=== PATIENT | female | born 1965 | race Caucasian/White ===

== ENCOUNTER 2021-07-05 18:45 | Emergency (ER) | payer BC, SELFPAY ==
--- NOTE | 2021-07-05 18:52 | XR_ITS ---
PROCEDURE INFORMATION: Exam: XR Right Shoulder Exam date and time: 07/05/2021 6:52 PM Age: 55 years old Clinical indication: Injury or trauma; Fall; Blunt trauma (contusions or hematomas); Shoulder; Right; Injury date: 07/05/2021; Additional info: Pain post fall unable to move arm TECHNIQUE: Imaging protocol: XR Right shoulder. Views: 2 or more views. COMPARISON: No relevant prior studies available. FINDINGS: Bones/joints: Displaced and mildly comminuted humeral neck fracture. Inferior subluxation of the humeral head suggests joint effusion. Soft tissues: Unremarkable. IMPRESSION: Displaced and mildly comminuted humeral neck fracture. Inferior subluxation of the humeral head suggests joint effusion.
--- NOTE | 2021-07-05 18:52 | XR_ITS ---
PROCEDURE INFORMATION: Exam: XR Right Humerus Exam date and time: 07/05/2021 6:52 PM Age: 55 years old Clinical indication: Injury or trauma; Fall; Blunt trauma (contusions or hematomas); Arm, upper; Right; Injury date: 07/05/2021; Additional info: Pain post fall TECHNIQUE: Imaging protocol: XR Right humerus. Views: 2 or more views. COMPARISON: CR XR SHOULDER RT MIN 2V 07/05/2021 6:52 PM FINDINGS: Bones/joints: Displaced and mildly comminuted humeral neck fracture. Inferior subluxation of the humeral head suggests joint effusion. Soft tissues: Unremarkable. IMPRESSION: Displaced and mildly comminuted humeral neck fracture. Inferior subluxation of the humeral head suggests joint effusion.
[2021-07-05 19:22] VITALS: BP 158/92; PULSE 105; RESP 22; TEMP 36.9; O2SAT 98; BMI 34.0
--- NOTE | 2021-07-05 19:29 | XR_ITS ---
PROCEDURE INFORMATION: Exam: XR Pelvis Exam date and time: 07/05/2021 7:29 PM Age: 55 years old Clinical indication: Injury or trauma; Fall; Blunt trauma (contusions or hematomas); Bilateral; Hip TECHNIQUE: Imaging protocol: XR pelvis. Views: 1 or 2 view. COMPARISON: No relevant prior studies available. FINDINGS: Bones/joints: No acute fracture or dislocation. Soft tissues: Unremarkable. IMPRESSION: No acute fracture or dislocation.
--- NOTE | 2021-07-05 19:29 | XR_ITS ---
PROCEDURE INFORMATION: Exam: XR Chest Exam date and time: 07/05/2021 7:29 PM Age: 55 years old Clinical indication: Injury or trauma; Fall; Blunt trauma (contusions or hematomas) TECHNIQUE: Imaging protocol: XR of the chest. Views: 4 or more views. COMPARISON: CR XR HUMERUS RT 07/05/2021 6:57 PM FINDINGS: Lungs: Right hemidiaphragm elevation with right lower lung atelectasis. Pleural spaces: Unremarkable. No pleural effusion. No pneumothorax. Heart/Mediastinum: Cardiomegaly. Bones/joints: Unremarkable. IMPRESSION: No acute intrathoracic organ injury.
[2021-07-05 20:00] VITALS: BP 152/92; PULSE 104; O2SAT 96
--- NOTE | 2021-07-05 20:05 | CT_ITS ---
PROCEDURE INFORMATION: Exam: CT Right Upper Extremity Without Contrast, Upper Arm Exam date and time: 07/05/2021 8:05 PM Age: 55 years old Clinical indication: Injury or trauma; Other: Barn wall fell onto shoulder; Blunt trauma (contusions or hematomas); Arm, upper; Right; Injury date: 07/05/2021; Additional info: Trauma, fracture RT shoulder TECHNIQUE: Imaging protocol: CT of the Right upper extremity without contrast was performed. Exam focused on the upper arm. 3D rendering (Not supervised by radiologist): MIP and/or 3D reconstructed images were created by the technologist. Radiation optimization: All CT scans at this facility use at least one of these dose optimization techniques: automated exposure control; mA and/or kV adjustment per patient size (includes targeted exams where dose is matched to clinical indication); or iterative reconstruction. COMPARISON: CR XR HUMERUS RT 07/05/2021 6:57 PM FINDINGS: Bones/joints: Moderately comminuted humeral neck fracture with involvement of the greater tuberosity. There is likely intra-articular component as well. The humeral diaphysis is mildly superiorly and anteriorly displaced. Moderate lipohemarthrosis. Soft tissues: Hematoma around the fracture. IMPRESSION: Moderately comminuted humeral neck fracture with involvement of the greater tuberosity. There is likely intra-articular component as well. The humeral diaphysis is mildly superiorly and anteriorly displaced.
--- NOTE | 2021-07-05 20:18 | PC.NURSE ---
Pt gone to rad for CT
--- NOTE | 2021-07-05 20:26 | HMH.EDGENADL ---
ED Disposition Clinical Impression: Fracture of surgical neck of right humerus Qualifiers: Encounter type: initial encounter Fracture type: closed Fracture morphology: 3-part Qualified Code(s): S42.231A - 3-part fracture of surgical neck of right humerus, initial encounter for closed fracture Disposition: Home, Self-Care Condition on Discharge: Fair Instructions: DI for Shoulder Fracture Additional Instructions: You have been evaluated for right shoulder injury, diagnosed with a closed, displaced proximal humerus fracture. Please keep sling and swath in place. Take Tylenol and Motrin for pain. Turton for extreme pain. Zofran for nausea. Follow-up with orthopedics at [facility], Dr. Adams early this week. You may also follow-up with Dr. Scales at [facility] if you choose. Return to the emergency department for any new or worsening pain, numbness, weakness, tingling, other concerns. Prescriptions: Hydrocod/Acet 5/325 mg [[place] 5/325mg tablet] 1 tab PO Q6HP PRN #12 tab PRN Reason: Severe Pain Transmission Status: Sent to [facility] #[id number] ondansetron HCL [Ondansetron 4mg tab*] 4 mg PO Q6HP PRN #12 tab PRN Reason: Nausea Transmission Status: Pending to [facility] #[id number] Referrals: Sera Landon [Primary Care Provider] - Time of Disposition: 21:15 - Critical Care Critical Care Time: No Attestation: On 07/05/21, the high probability of a clinically significant, sudden or life threatening deterioration of the following system(s) required my full and direct attention, intervention and personal management. The time I documented below is in addition to time spent performing reported procedures but includes the following listed in this critical care notation. Medical Decision Making - Medical Records Medical records reviewed: Yes: I reviewed the patient's medical records. - Cresecncio Inquiry Pt receiving controlled substance: No Vital Signs: 07/05/21 19:22 Temperature 98.4 F Temperature Source Oral Pulse Rate [Right Radial] 105 H Respiratory Rate 22 Blood Pressure [Left Arm] 158/92 H Blood Pressure Mean [Left Arm] 114 Blood Pressure Source [Left Arm] Automatic Cuff Blood Pressure Position [Left Arm] Supine 02 Sat by Pulse Oximetry 98 Oxygen Delivery Method Room Air Orders (Tests/Meds): ED MEDICATIONS Discontinued Medications Generic Name Dose Route Start Last Admin Trade Name Yariel PRN Reason Stop Dose Admin Morphine Sulfate 4 mg 07/05/21 19:31 07/05/21 19:32 Morphine 4mg/Ml Syringe IV 07/05/21 19:32 4 mg ONCE ONE Administration Morphine Sulfate 4 mg 07/05/21 20:04 07/05/21 20:12 Morphine 4mg/Ml Syringe IV 07/05/21 20:05 4 mg ONCE ONE Administration Ondansetron HCl 4 mg 07/05/21 19:31 07/05/21 19:32 Ondansetron 4mg/2ml Vial IV 07/05/21 19:32 4 mg ONCE ONE Administration Medical Decision Narrative: In summary this is a 55-year-old [id number] female presenting to the emergency department with traumatic right shoulder injury. Clinically stable on arrival. Tachycardic. Other vital signs within normal limits. Concern for clavicle fracture, humerus fracture, dislocation. Will obtain x-rays of the right humerus, shoulder, chest. Patient given 4 mg IV morphine and 4 mg IV Zofran. X-rays were limited, given patient's decreased range of motion. Will obtain CT scan. Imaging is concerning for a humerus fracture at the surgical neck. Patient neurovascularly intact. CT scan shows comminuted humeral neck fracture with involvement of the greater tuberosity. Distal humerus mildly superior and anteriorly displaced. Do not have an orthopedist insurance application investigator tonight. Case discussed with [facility], Dr. Adams. He recommended sling and swath. Patient can follow-up with their group within 1 week. Patient may also follow-up with Dr. Scales if she chooses. On reassessment, pain much improved. Patient given prescriptions for Turton and Zofran.
[2021-07-05 20:30] VITALS: BP 150/80; PULSE 93; RESP 18; O2SAT 100
--- NOTE | 2021-07-05 20:41 | PC.NURSE ---
pt back in room from rad
[2021-07-05 21:00] VITALS: BP 161/90; PULSE 89; O2SAT 93
--- NOTE | 2021-07-05 21:08 | PC.NURSE ---
[id number]- [facility] paged for ortho consult [id number]- called back and is speaking with MD Pretty at this time
[2021-07-05 22:06] VITALS: BP 162/95; PULSE 93; RESP 18; TEMP 36.9; O2SAT 97
== END 2021-07-05 21:30 | disposition home or self-care (01) ==
LOC: UTC 18:52 → ER 19:14
PROVIDERS: Emergency Provider Emergency Medicine; PCP Family Medicine
DX: S42.231A 3-part fracture of surgical neck of right humerus, initial encounter for closed fracture (principal); W20.8XXA Other cause of strike by thrown, projected or falling object, initial encounter
CPT/HCPCS: 71045; 72170; 73030; 73060; 73200; 96374; 96375; 96376; 99282; J2405

== ENCOUNTER 2021-10-27 11:49 | Inpatient (IN) | payer BC, SELFPAY ==
[2021-10-27 11:50] VITALS: BP 138/77; PULSE 84; RESP 18; TEMP 37.2; O2SAT 86; BMI 34.5
--- NOTE | 2021-10-27 12:01 | ECG_ITS ---
APPROVED REPORT Exam: Resting ECG HR:67 bpm ECG Measurements Heart Rate 67 AXES AZ 126 P -21 QRSd 95 QRS 3 QT 385 T 5 QTc 401 Conclusion SINUS RHYTHM MODERATE VOLTAGE CRITERIA FOR LVH, CONSIDER NORMAL VARIANT [MEETS CRITERIA IN ONE OF: R(aVL), S(V1), R(V5), R(V5/V6)+S(V1)] BORDERLINE ECG UNCONFIRMED REPORT Electronically signed by : David Rm MD 10/27/2021 17:26:17
--- NOTE | 2021-10-27 12:04 | XR_ITS ---
FINAL REPORT CLINICAL HISTORY: cough, covid+ 12 DAYS AGO, soa COMPARISON: July 05, 2021 FINDINGS: The heart size is normal. The mediastinum is normal. There are new bilateral pulmonary opacities consistent with bilateral pneumonia. There are no pleural effusions. There is no pneumothorax. There is a chronic fracture of the right proximal humerus. IMPRESSION: Bilateral pneumonia. Reviewed, Interpreted and Dictated by Nemesio Sánchez III, MD Transcribed by Iván Johnson Authenticated by Nemesio Sánchez III, MD on 10/27/2021 01:08:59 PM [facility]
--- NOTE | 2021-10-27 12:11 | HMH.EDGENADL ---
ED Disposition Clinical Impression: COVID-19, Hypoxemia CAP (community acquired pneumonia) Qualifiers: Laterality: unspecified laterality Qualified Code(s): J18.9 - Pneumonia, unspecified organism Disposition: Admitted as Observation Condition on Discharge: Good Referrals: Sera Landon [Primary Care Provider] - - Critical Care Critical Care Time: No Attestation: On 10/27/21, the high probability of a clinically significant, sudden or life threatening deterioration of the following system(s) required my full and direct attention, intervention and personal management. The time I documented below is in addition to time spent performing reported procedures but includes the following listed in this critical care notation. Medical Decision Making - Medical Records Medical records reviewed: Yes: I reviewed the patient's medical records. - Crescencio Inquiry Pt receiving controlled substance: No Vital Signs: 10/27/21 11:50 10/27/21 13:19 Temperature 99 F Temperature Source Oral Pulse Rate [Right Radial] 84 Respiratory Rate 18 Blood Pressure 128/82 Blood Pressure [Right Arm] 138/77 Blood Pressure Mean [Right Arm] 97 Blood Pressure Source [Right Arm] Automatic Cuff Blood Pressure Position [Right Arm] Sitting 02 Sat by Pulse Oximetry 86 L 95 Oxygen Delivery Method Room Air Nasal Cannula Oxygen Flow Rate (LPM) 2 - Lab Data Lab Results 10/27/21 13:20: WBC 10.9 H, RBC 4.52, Hgb 13.0, Hct 39.6, MCV 87.6, MCH 28.6, MCHC 32.7, RDW 13.8, Plt Count 718 H, MPV 7.1 L, Neut % (Auto) 89.8 H, Lymph % (Auto) 5.1 L, [place] % (Auto) 3.5, Eos % (Auto) 0.4, Baso % (Auto) 1.1, Neut # (Auto) 9.8 H, Lymph # (Auto) 0.6 L, [place] # (Auto) 0.4, Eos # (Auto) 0.1, Baso # (Auto) 0.1 10/27/21 13:20: Sodium 134 L, Potassium 3.3 L, Chloride 94 L, Carbon Dioxide 35 H, Anion Gap 8.3, BUN 11, Creatinine 0.50 L, Estimated Creat Clear 170, Estimated GFR 128, Est GFR ( Amer) 154, Glucose 122 H, Calcium 8.6, Total Bilirubin 0.6, AST 36, ALT 18, Alkaline Phosphatase 87, Total Protein 6.9, Albumin 3.6, Globulin 3.3 H, Albumin/Globulin Ratio 1.1 Result diagrams: 10/27/21 13:20 10/27/21 13:20 Orders (Tests/Meds): ED MEDICATIONS Generic Name Dose Route Start Last Admin Trade Name Freq PRN Reason Stop Dose Admin Ceftriaxone Sodium 1 gm/ 50 mls @ 100 mls/hr 10/27/21 14:58 Sodium Chloride IV 10/27/21 15:27 Q24H ONE Discontinued Medications Generic Name Dose Route Start Last Admin Trade Name Freq PRN Reason Stop Dose Admin Dexamethasone Sodium Phosphate 8 mg 10/27/21 14:08 Dexamethasone 4mg/Ml 1ml Vial IV 10/27/21 14:09 ONCE ONE Azithromycin 500 mg/ Sodium 250 mls @ 250 mls/hr 10/27/21 14:09 Chloride IV 10/27/21 14:10 ONCE ONE Ceftriaxone Sodium 1 gm/ 50 mls @ 100 mls/hr 10/27/21 14:09 Sodium Chloride IV 10/27/21 14:38 ONCE ONE Potassium Chloride 40 meq 10/27/21 13:53 Potassium Chloride 20meq Tab PO 10/27/21 13:54 ONCE ONE ORDERS Category Date Time Status Complete Blood Count Auto Diff Stat Lab 10/27/21 13:20 Results Blood Culture Stat Micro 10/27/21 14:50 Received Medical Decision Narrative: ekg by me nsr, lvh, no st elev reeval, hypoxia ra, 2lnc 92% comfortable General Adult HPI - General Chief complaint: Shortness of Breath/Dyspnea Stated complaint: covid postive, soa Time Seen by Provider: 10/27/21 12:11 Mode of Arrival: Wheelchair Limitations: No Limitations Description of Symptoms (Recalled from ER Triage Doc. by RN): Pt states that she tested positive for COVID on 10/15. C/O worsening SOA today - History of Present Illness HPI narrative: recent covid pos, today with soa and cough denies cp Radiation: non-radiation Severity: moderate Quality: constant Consistency: intermittent Relieving factors: none Exacerbating factors: none Associated symptoms: denies other symptoms - Related Data Home Medications Medication Instr
[2021-10-27 13:19] VITALS: BP 128/82; O2SAT 95
[2021-10-27 13:29] LABS: Basophils # 0.1 K/mm3 (0-0.2); Basophils % 1.1 % (0.1-2.0); Eosinophils # 0.1 K/mm3 (0.0-0.4); Eosinophils % 0.4 % (0.1-12.0); Hematocrit 39.6 % (37.0-47.0); Lymphocytes # 0.6 K/mm3 (0.7-4.5); Lymphocytes % 5.1 % (10-50); Mean Corpuscular HGB Conc 32.7 g/dL (31.8-35.4); Mean Corpuscular Hemoglobin 28.6 pg (27.0-31.2); Mean Corpuscular Volume 87.6 fl (81-99); Mean Platelet Volume 7.1 fl (7.4-10.4); Monocytes # 0.4 K/mm3 (0.1-1.0); Monocytes % 3.5 % (1.7-9.3); Neutrophils # 9.8 K/mm3 (1.8-7.8); Neutrophils % 89.8 % (37.0-80.0); Platelet Count 718 K/mm3 (142-424); Red Blood Count 4.52 M/mm3 (4.20-5.40); Red Cell Distribution Width 13.8 % (11.5-17.5); White Blood Count 10.9 K/mm3 (4.8-10.8)
[2021-10-27 13:41] LABS: Alanine Aminotransferase 18 U/L (12-78); Albumin Level 3.6 g/dl (3.5-5.0); Albumin/Globulin Ratio 1.1 (1.1-1.8); Alkaline Phosphatase 87 U/L (38-126); Anion Gap 8.3 mEq/L (5-15); Aspartate Amino Transferase 36 U/L (14-36); Bilirubin,Total 0.6 mg/dl (0.2-1.3); Blood Urea Nitrogen 11 mg/dl (7-17); Calcium 8.6 mg/dl (8.4-10.2); Carbon Dioxide 35 mmol/L (22.0-30.0); Chloride 94 mmol/L (98-107); Creatinine Clearance Estimated 170 mL/min (50-200); Estimated Glomerular Filt Rate 128 ml/min (>60); GFR (African American) 154 ML/MIN (>60); Globulin 3.3 g/dL (1.3-3.2); Glucose 122 mg/dl (74-100); Potassium 3.3 mmoL/L (3.5-5.1); Sodium 134 mmol/L (136-145); Total Protein,Serum 6.9 g/dl (6.3-8.2)
--- NOTE | 2021-10-27 13:58 | PC.NURSE ---
Family given an update
[2021-10-27 14:00] LABS: MANUAL DIFFERENTIAL MANUAL DIFFERENTIAL (MANUAL DIFF)
--- NOTE | 2021-10-27 14:36 | PC.NURSE ---
Unsuccessful blood draw x 1 on patient. Lab notified
[2021-10-27 16:22] LABS: Eosinophils % 1 % (0-3); Lymphocytes % 9 % (10-50); Monocytes % 5 % (2-9); Neutrophils % 85 % (42-76); Platelet Estimate Marked Increase; RBC Morphology Normal; Total Cells Counted 100
[2021-10-27 17:03] LABS: Influenza A, PCR Not Detected (NotDetected); Influenza B, PCR Not Detected (NotDetected)
[2021-10-27 17:30] LABS: Coronavirus 19, PCR Detected (NotDetected)
--- NOTE | 2021-10-27 17:53 | PC.NURSE ---
called report to mickey cardenas
[2021-10-27 18:00] VITALS: BP 104/65; PULSE 67; RESP 18; TEMP 36.8; O2SAT 90
[2021-10-27 18:54] VITALS: BP 131/79; PULSE 88; RESP 18; TEMP 36.9; O2SAT 97
--- NOTE | 2021-10-27 19:07 | CT_ITS ---
PROCEDURE INFORMATION: Exam: CTA Chest With Contrast Exam date and time: 10/27/2021 7:07 PM Age: 56 years old Clinical indication: Shortness of breath; Additional info: Hypoxia, covid TECHNIQUE: Imaging protocol: Computed tomographic angiography of the chest with contrast. 3D rendering (Not supervised by radiologist): MIP and/or 3D reconstructed images were created by the technologist. Radiation optimization: All CT scans at this facility use at least one of these dose optimization techniques: automated exposure control; mA and/or kV adjustment per patient size (includes targeted exams where dose is matched to clinical indication); or iterative reconstruction. Contrast material: ISOVUE 370; Contrast volume: 70 ml; Contrast route: INTRAVENOUS (IV); COMPARISON: CR XR CHEST PORTABLE 10/27/2021 12:32 PM FINDINGS: Pulmonary arteries: Normal. No pulmonary emboli. Aorta: No aortic aneurysm. No aortic dissection. Lungs: Multifocal bilateral ground-glass pulmonary opacities. No lobar consolidation. Pleural spaces: No pneumothorax. No pleural effusion. Heart: No cardiomegaly. No pericardial effusion. Lymph nodes: No enlarged lymph nodes. Bones/joints: No acute fracture. Soft tissues: No significant swelling. IMPRESSION: Multifocal bilateral ground-glass pulmonary opacities which are nonspecific but potentially infectious or inflammatory and would be compatible with the provided history of covid. Follow-up to radiographic clearance is recommended.
[2021-10-27 20:00] VITALS: BP 122/74; PULSE 70; RESP 20; TEMP 36.7; O2SAT 92
[2021-10-27 23:55] VITALS: O2SAT 93
[2021-10-28] VITALS (10 sets, daily range): BP systolic 118–152; BP diastolic 49–81; PULSE 67–95; RESP 17–22; TEMP 36.3–37.1; O2SAT 88–95; BMI 31.2
--- NOTE | 2021-10-28 05:49 | PC.NURSE ---
Patient has required an increase in oxygen throughout the night. Patient is now on 3LNC. Patient does have a CPAP at home and can have someone bring it to the hospital
--- NOTE | 2021-10-28 07:20 | SW/DCPLANNER ---
PATIENT ADMITTED TO [facility] ON 10/27 WITH A DIAGNOSIS OF COVID PNEUMONIA.. PATIENT IS AN EMPLOYEE AT THE [employer] IN [place] AND RESIDES IN [place].. CM WILL FOLLOW PATIENT THROUGH HER STAY WHICH SHOULD BE SHORT AND ANY NEEDS SHE NEEDS WILL BE SET UP AT TIME OF DISPOSITION...
--- NOTE | 2021-10-28 07:26 | HMH.HP ---
*Admission Date: 10/27/21 *Chief complaint: Shortness of breath *History of present illness: 56-year-old female presented to the emergency department yesterday with increasing shortness of breath believed to be related to COVID-19 infection. Patient had tested positive for COVID-19 on October 15. Patient completed a 10-day quarantine. Initial symptoms were primarily headache and nasal congestion with fevers as high as 102.7. On Wednesday the 26 patient noticed increasing shortness of breath and loss of energy. This progressed to the point where she presented to the emergency department on the day of admission. Patient was hypoxic on presentation and her prior hypoxia was easily corrected with application of nasal cannula. Further work-up confirmed the presence of infiltrates. Patient was admitted for acute respiratory failure from pneumonia related to COVID-19 infection. She has been started on Remdesivir and dexamethasone as well as Rocephin and azithromycin. Patient has no personal history of lung disease. She is a non-smoker. Patient has had an increase in oxygen requirement overnight. Initially she was admitted on 2 L via nasal cannula and currently she is up to 5 L/min. CT scan performed on admission ruled out pulmonary emboli [facility] History I have reviewed the patient's past medical history: Yes Medical History: Reports:: Hyperlipidemia, Hypertension, Palpitations Denies:: Cancer, Diabetes Mellitus Type 1, Diabetes Mellitus Type 2, MRSA *Have you ever received a pneumonia vaccine?: No *Have you received a flu vaccine this season?: No Other Medical History: Reports: Arthritis Other Surgeries: Yes: Colonoscopy, EGD, Hysterectomy-Partial Amputation: No Fractures: No - *Social History Last grade of school completed: Advanced degree Smoking Status: Never smoker Alcohol Intake: never *Occupational Status:: employed Housing: house Household Members: spouse *Travel in the last 8 weeks: None Family Hx:: Mental illness Review of Systems - Review of Systems Review of systems:: pertinent systems reviewed and negative unless documented below Meds Home Medications Medication Instructions Recorded Confirmed Type Cetirizine HCl 10 mg PO DAILY 07/05/21 07/05/21 History EPINEPHrine [Epipen 2-Yoel] 0.3 mg IM NEEDED PRN 07/05/21 07/05/21 History Ezetimibe [Zetia] 10 mg PO DAILY 07/05/21 07/05/21 History Fluticasone Propionate 1 spray IN DAILY 07/05/21 07/05/21 History Hydrocod/Acet 5/325 mg [[place] 1 tab PO Q6HP PRN #12 tab 07/05/21 Rx 5/325mg tablet] Losartan Potassium [Cozaar 50mg 50 mg PO NEEDED PRN 07/05/21 07/05/21 History Tablets] Omeprazole [Omeprazole 20mg 20 mg PO DAILY 07/05/21 07/05/21 History Capsule] hydroCHLOROthiazide 12.5 mg PO NEEDED PRN 07/05/21 07/05/21 History [Hydrochlorothiazide 12.5mg Tab] ondansetron HCL [Ondansetron 4mg 4 mg PO Q6HP PRN #12 tab 07/05/21 Rx tab*] Allergies Allergy/AdvReac Type Severity Reaction Status Date / Time calcium carbonate [From Tums] Allergy Verified 07/05/21 19:00 Estrogens Allergy Verified 07/05/21 19:00 Penicillins Allergy Verified 07/05/21 19:00 Exam Vital signs and Labs for Last 24 Hours: Temp Pulse Resp BP Pulse Ox 97.7 F 68 17 151/81 H 94 L 10/28/21 04:00 10/28/21 04:00 10/28/21 04:00 10/28/21 04:00 10/28/21 04:00 Laboratory Results - last 24 hr 10/27/21 13:20: WBC 10.9 H, RBC 4.52, Hgb 13.0, Hct 39.6, MCV 87.6, MCH 28.6, MCHC 32.7, RDW 13.8, Plt Count 718 H, MPV 7.1 L, Neut % (Auto) 89.8 H, Lymph % (Auto) 5.1 L, [place] % (Auto) 3.5, Eos % (Auto) 0.4, Baso % (Auto) 1.1, Neut # (Auto) 9.8 H, Lymph # (Auto) 0.6 L, [place] # (Auto) 0.4, Eos # (Auto) 0.1, Baso # (Auto) 0.1, Total Counted 100, Neutrophils % (Manual) 85 H, Lymphocytes % (Manual) 9 L, Monocytes % (Manual) 5, Eosinophils % (Manual) 1, Platelet Estimate Marked increase, RBC Morphology Normal 10/27/21 13:20: Sodium 134 L, Potassium 3.3 L, Chl
--- NOTE | 2021-10-28 07:41 | HMH.PHAVTE ---
[facility] Pharmacy VTE Monitoring - Patient Demographics Admission date: 10/27/21 Report Date: 10/28/21 Time: 07:41 Allergies/Adverse Reactions: Patient Allergies calcium carbonate [From Tums] Allergy (Verified 07/05/21 19:00) Estrogens Allergy (Verified 07/05/21 19:00) Penicillins Allergy (Verified 07/05/21 19:00) Height: 1.57 m Weight: 77.111 kg Patient Problems: Current Active Problems CAP (community acquired pneumonia) (Acute) COVID-19 (Acute) Hypoxemia (Acute) Acute respiratory failure with hypoxia (Acute) Viral pneumonia (Acute) Essential hypertension (Acute) Obesity (BMI 30.0-34.9) (Acute) - VTE Risk Labs: VTE Related Lab Results Hgb 13.0 g/dL (12.2-16.2) 10/27/21 13:20 Hct 39.6 % (37.0-47.0) 10/27/21 13:20 Plt Count 718 K/mm3 (142-424) H 10/27/21 13:20 BUN 11 mg/dl (7-17) 10/27/21 13:20 Creatinine 0.50 mg/dl (0.52-1.04) L 10/27/21 13:20 Estimated Creat Clear 170 mL/min (50-200) 10/27/21 13:20 Was VTE Risk Assessment Performed: Yes VTE Score: 3 VTE Risk Level: Low Risk - Prophylaxis VTE Prophylaxis Ordered?: Yes Types of VTE Prophylaxis: TEDS Knee High, Pharmacological Location of Applied Device: Bilateral Lower Extremeties Pharmacologic Type: Enoxaparin
[2021-10-28 07:55] LABS: Chloride 100 mmol/L (98-107); Sodium 138 mmol/L (136-145)
[2021-10-28 07:56] LABS: Potassium 3.6 mmoL/L (3.5-5.1)
[2021-10-28 07:57] LABS: Basophils % 0.4 % (0.1-2.0); Eosinophils % 0.2 % (0.1-12.0); Hematocrit 41.1 % (37.0-47.0); Hemoglobin 13.1 g/dL (12.2-16.2); Lymphocytes # 0.7 K/mm3 (0.7-4.5); Lymphocytes % 9.9 % (10-50); Mean Corpuscular HGB Conc 31.9 g/dL (31.8-35.4); Mean Corpuscular Hemoglobin 28.3 pg (27.0-31.2); Mean Corpuscular Volume 88.6 fl (81-99); Mean Platelet Volume 8.1 fl (7.4-10.4); Monocytes # 0.4 K/mm3 (0.1-1.0); Monocytes % 5.6 % (1.7-9.3); Neutrophils # 5.7 K/mm3 (1.8-7.8); Platelet Count 815 K/mm3 (142-424); Red Blood Count 4.64 M/mm3 (4.20-5.40); Red Cell Distribution Width 13.9 % (11.5-17.5); White Blood Count 6.8 K/mm3 (4.8-10.8)
[2021-10-28 07:58] LABS: Alanine Aminotransferase 19 U/L (12-78); Albumin Level 3.6 g/dl (3.5-5.0); Alkaline Phosphatase 82 U/L (38-126); Anion Gap 11.6 mEq/L (5-15); Aspartate Amino Transferase 35 U/L (14-36); Bilirubin,Total 0.5 mg/dl (0.2-1.3); Blood Urea Nitrogen 14 mg/dl (7-17); Carbon Dioxide 30 mmol/L (22.0-30.0); Creatinine Clearance Estimated 191 mL/min (50-200); Estimated Glomerular Filt Rate 165 ml/min (>60); GFR (African American) 200 ML/MIN (>60); Globulin 3.5 g/dL (1.3-3.2); Total Protein,Serum 7.1 g/dl (6.3-8.2)
[2021-10-28 07:59] LABS: Calcium 8.9 mg/dl (8.4-10.2); Glucose 125 mg/dl (74-100)
[2021-10-28 08:04] LABS: C-Reactive Protein 73.7 mg/L (0-4)
--- NOTE | 2021-10-28 09:40 | PC.NURSE ---
RESPIRATORY CARE NOTE:PT COULD NOT PRODUCE SPUTUM SAMPLE AT THIS TIME. INDUCED WITH HYPERTONIC SALINE AND LEFT CUP AT BEDSIDE. INSTRUCTED PT TO CONTINUE TO TRY TO GET SAMPLE IF POSSIBLE.
--- NOTE | 2021-10-28 10:38 | HMH.PHAINT ---
MEDICATION RECONCILIATION COMPLETED ON PATIENT USING EXTERNAL FILL HISTORY FROM PHARMACY. -PERLA VALENCIA, MCKAYD
[2021-10-29] VITALS (10 sets, daily range): BP systolic 106–138; BP diastolic 65–75; PULSE 57–86; RESP 16–22; TEMP 36.8–37.1; O2SAT 88–97; BMI 31.2
[2021-10-29 06:45] LABS: Chloride 97 mmol/L (98-107); Potassium 3.4 mmoL/L (3.5-5.1); Sodium 134 mmol/L (136-145)
[2021-10-29 06:48] LABS: Alanine Aminotransferase 22 U/L (12-78); Albumin Level 3.4 g/dl (3.5-5.0); Albumin/Globulin Ratio 1.1 (1.1-1.8); Alkaline Phosphatase 68 U/L (38-126); Anion Gap 9.4 mEq/L (5-15); Aspartate Amino Transferase 38 U/L (14-36); Bilirubin,Total 0.6 mg/dl (0.2-1.3); Blood Urea Nitrogen 14 mg/dl (7-17); Carbon Dioxide 31 mmol/L (22.0-30.0); Creatinine Clearance Estimated 153 mL/min (50-200); Estimated Glomerular Filt Rate 128 ml/min (>60); GFR (African American) 154 ML/MIN (>60); Globulin 3.2 g/dL (1.3-3.2); Total Protein,Serum 6.6 g/dl (6.3-8.2)
[2021-10-29 06:49] LABS: Calcium 8.3 mg/dl (8.4-10.2); Glucose 103 mg/dl (74-100)
[2021-10-29 07:01] LABS: Basophils # 0.1 K/mm3 (0-0.2); Basophils % 0.7 % (0.1-2.0); Eosinophils % 0.2 % (0.1-12.0); Hematocrit 39.1 % (37.0-47.0); Hemoglobin 12.3 g/dL (12.2-16.2); Lymphocytes # 1.3 K/mm3 (0.7-4.5); Lymphocytes % 15.1 % (10-50); Mean Corpuscular HGB Conc 31.5 g/dL (31.8-35.4); Mean Corpuscular Hemoglobin 28.5 pg (27.0-31.2); Mean Corpuscular Volume 90.5 fl (81-99); Mean Platelet Volume 7.8 fl (7.4-10.4); Monocytes # 0.5 K/mm3 (0.1-1.0); Monocytes % 5.1 % (1.7-9.3); Neutrophils % 79.1 % (37.0-80.0); Platelet Count 875 K/mm3 (142-424); Red Blood Count 4.32 M/mm3 (4.20-5.40); Red Cell Distribution Width 14.1 % (11.5-17.5); White Blood Count 8.9 K/mm3 (4.8-10.8)
--- NOTE | 2021-10-29 07:48 | HMH.ACPN2 ---
Internal Medicine - PN: Subj *Date: 10/29/21 *Time: 07:48 Interval history: No acute events. Patient has noted dyspnea only with ambulation and exertion. O2 sats have remained 88 to 92% on 4 to 5 L/min via nasal cannula Exam Vital signs and Labs for Last 24 Hours: Temp Pulse Resp BP Pulse Ox 98.8 F 83 18 112/65 94 L 10/29/21 07:26 10/29/21 07:26 10/29/21 07:26 10/29/21 07:26 10/29/21 07:26 Laboratory Results - last 24 hr 10/28/21 07:15: WBC 6.8 D, RBC 4.64, Hgb 13.1, Hct 41.1, MCV 88.6, MCH 28.3, MCHC 31.9, RDW 13.9, Plt Count 815 H, MPV 8.1, Neut % (Auto) 84.0 H, Lymph % (Auto) 9.9 L, [place] % (Auto) 5.6, Eos % (Auto) 0.2, Baso % (Auto) 0.4, Neut # (Auto) 5.7, Lymph # (Auto) 0.7, [place] # (Auto) 0.4, Eos # (Auto) 0.0, Baso # (Auto) 0.0 10/28/21 07:15: Sodium 138, Potassium 3.6, Chloride 100, Carbon Dioxide 30, Anion Gap 11.6, BUN 14 D, Creatinine 0.40 L, Estimated Creat Clear 191, Estimated GFR 165, Est GFR ( Amer) 200 D, Glucose 125 H, Calcium 8.9, Total Bilirubin 0.5, AST 35, ALT 19, Alkaline Phosphatase 82, C-Reactive Protein 73.7 H, Total Protein 7.1, Albumin 3.6, Globulin 3.5 H, Albumin/Globulin Ratio 1.0 L, Procalcitonin 0.070 10/29/21 06:11: WBC 8.9 D, RBC 4.32, Hgb 12.3, Hct 39.1, MCV 90.5, MCH 28.5, MCHC 31.5 L, RDW 14.1, Plt Count 875 H, MPV 7.8, Neut % (Auto) 79.1, Lymph % (Auto) 15.1, [place] % (Auto) 5.1, Eos % (Auto) 0.2, Baso % (Auto) 0.7, Neut # (Auto) 7.0, Lymph # (Auto) 1.3, [place] # (Auto) 0.5, Eos # (Auto) 0.0, Baso # (Auto) 0.1 10/29/21 06:11: Sodium 134 L, Potassium 3.4 L, Chloride 97 L, Carbon Dioxide 31 H, Anion Gap 9.4, BUN 14, Creatinine 0.50 L D, Estimated Creat Clear 153, Estimated GFR 128, Est GFR ( Amer) 154 D, Glucose 103 H, Calcium 8.3 L, Total Bilirubin 0.6, AST 38 H, ALT 22, Alkaline Phosphatase 68, Total Protein 6.6, Albumin 3.4 L, Globulin 3.2, Albumin/Globulin Ratio 1.1 I & O for Last 24 hours: Intake & Output 10/26/21 10/27/21 10/28/21 10/29/21 11:59 11:59 11:59 11:59 Intake Total 360 / 360 640 / 640 Output Total 0 / 0 Balance 360 / 360 640 / 640 Weight 189 lb 170 lb 169 lb 12.095 oz - Constitutional no acute distress - *Routine Respiratory Exam Present: rales (Bibasilar rales) - *Routine Cardiovascular Exam Present: RRR Assessment and Plan (1) Acute respiratory failure with hypoxia Status: Acute Category: Medical Code(s): J96.01 - Acute respiratory failure with hypoxia (2) Viral pneumonia Status: Acute Category: Medical Code(s): J12.9 - Viral pneumonia, unspecified (3) Essential hypertension Status: Acute Category: Medical Code(s): I10 - Essential (primary) hypertension (4) Obesity (BMI 30.0-34.9) Status: Acute Category: Medical Code(s): E66.9 - Obesity, unspecified (5) COVID-19 Status: Acute Category: Medical Code(s): U07.1 - COVID-19 - Assessment and plan all Dx Assessment and Plan for all problems:: 1. Remdesivir and dexamethasone for COVID-19 infection with acute respiratory failure 2. Rocephin and azithromycin to empirically cover bacterial pneumonia 3. Begin aerosols with DuoNeb's and budesonide 4. Continue patient's home medications 5. Lovenox for DVT prophylaxis 6. Begin oral potassium supplementation for mild hypokalemia
--- NOTE | 2021-10-29 14:29 | PC.NURSE ---
AOx4 able to make needs known to staff. GCS 15. 4lnc for o2 support with o2 sat of 96% at time of writing. lung sounds diminished bilaterally on auscultation. she has ambulated in room and to bathroom and tolerated well his shift. appetite is fair with no c/o n/v/d. abd is soft and non-tender with bowel sounds active x4. pt showered independently this shift.
[2021-10-30] VITALS (9 sets, daily range): BP systolic 101–154; BP diastolic 56–80; PULSE 64–90; RESP 16–20; TEMP 36.6–37.6; O2SAT 4–96; BMI 31.2
[2021-10-30 07:16] LABS: Basophils % 0.3 % (0.1-2.0); Eosinophils % 0.6 % (0.1-12.0); Hematocrit 37.4 % (37.0-47.0); Hemoglobin 11.7 g/dL (12.2-16.2); Lymphocytes # 1.3 K/mm3 (0.7-4.5); Lymphocytes % 18.8 % (10-50); Mean Corpuscular HGB Conc 31.3 g/dL (31.8-35.4); Mean Corpuscular Hemoglobin 28.3 pg (27.0-31.2); Mean Corpuscular Volume 90.3 fl (81-99); Mean Platelet Volume 7.5 fl (7.4-10.4); Monocytes # 0.5 K/mm3 (0.1-1.0); Monocytes % 6.4 % (1.7-9.3); Neutrophils # 5.2 K/mm3 (1.8-7.8); Platelet Count 784 K/mm3 (142-424); Red Blood Count 4.14 M/mm3 (4.20-5.40); Red Cell Distribution Width 14.1 % (11.5-17.5)
[2021-10-30 07:20] LABS: Chloride 99 mmol/L (98-107); Potassium 3.2 mmoL/L (3.5-5.1); Sodium 133 mmol/L (136-145)
[2021-10-30 07:22] LABS: Blood Urea Nitrogen 11 mg/dl (7-17); Creatinine Clearance Estimated 153 mL/min (50-200); Estimated Glomerular Filt Rate 128 ml/min (>60); GFR (African American) 154 ML/MIN (>60)
[2021-10-30 07:23] LABS: Alanine Aminotransferase 21 U/L (12-78); Albumin Level 3.2 g/dl (3.5-5.0); Albumin/Globulin Ratio 1.1 (1.1-1.8); Alkaline Phosphatase 66 U/L (38-126); Anion Gap 6.2 mEq/L (5-15); Aspartate Amino Transferase 47 U/L (14-36); Bilirubin,Total 0.5 mg/dl (0.2-1.3); Carbon Dioxide 31 mmol/L (22.0-30.0); Globulin 2.9 g/dL (1.3-3.2); Glucose 101 mg/dl (74-100); Total Protein,Serum 6.1 g/dl (6.3-8.2)
--- NOTE | 2021-10-30 08:31 | P.PN_ITS ---
Internal Medicine - PN: Subj *Date: 10/30/21 *Time: 08:31 Interval history: Patient had an episode of severe coughing overnight with shortness of breath. She requested a breathing treatment but states this had minimal impact. Exam Vital signs and Labs for Last 24 Hours: Temp Pulse Resp BP Pulse Ox 97.8 F 84 20 101/56 L 4 L 10/30/21 08:00 10/30/21 08:00 10/30/21 08:00 10/30/21 08:00 10/30/21 08:00 Laboratory Results - last 24 hr 10/30/21 06:53: WBC 7.0, RBC 4.14 L, Hgb 11.7 L, Hct 37.4, MCV 90.3, MCH 28.3, MCHC 31.3 L, RDW 14.1, Plt Count 784 H, MPV 7.5, Neut % (Auto) 74.0, Lymph % (Auto) 18.8, [place] % (Auto) 6.4, Eos % (Auto) 0.6, Baso % (Auto) 0.3, Neut # (Auto) 5.2, Lymph # (Auto) 1.3, [place] # (Auto) 0.5, Eos # (Auto) 0.0, Baso # (Auto) 0.0 10/30/21 06:53: Sodium 133 L, Potassium 3.2 L, Chloride 99, Carbon Dioxide 31 H, Anion Gap 6.2, BUN 11, Creatinine 0.50 L, Estimated Creat Clear 153, Estimated GFR 128, Est GFR ( Amer) 154, Glucose 101 H, Calcium 8.0 L, Total Bilirubin 0.5, AST 47 H, ALT 21, Alkaline Phosphatase 66, Total Protein 6.1 L, Albumin 3.2 L, Globulin 2.9, Albumin/Globulin Ratio 1.1 I & O for Last 24 hours: Intake & Output 10/27/21 10/28/21 10/29/21 10/30/21 11:59 11:59 11:59 11:59 Intake Total 360 / 360 640 / 640 600 / 600 Output Total 0 / 0 Balance 360 / 360 640 / 640 600 / 600 Weight 189 lb 170 lb 169 lb 12.095 oz 169 lb 12.095 oz Microbiology Reports for the Last 24 Hours: Microbiology 10/27/21 14:50 Blood Blood Culture - Preliminary NO GROWTH AFTER 48 HOURS 10/27/21 14:50 Blood Blood Culture - Preliminary NO GROWTH AFTER 48 HOURS Narrative: Patient looks comfortable. O2 sats was 96% on 4 L/min via nasal cannula and remained at 94% with decreased in 2 L/min. Patient appears comfortable. Lungs have persistent rales primarily in the left midlung. Heart has a regular rate and rhythm. Assessment and Plan (1) Acute respiratory failure with hypoxia Status: Acute Category: Medical Code(s): J96.01 - Acute respiratory failure with hypoxia (2) Viral pneumonia Status: Acute Category: Medical Code(s): J12.9 - Viral pneumonia, unspecified (3) Essential hypertension Status: Acute Category: Medical Code(s): I10 - Essential (primary) hypertension (4) Obesity (BMI 30.0-34.9) Status: Acute Category: Medical Code(s): E66.9 - Obesity, unspecified (5) COVID-19 Status: Acute Category: Medical Code(s): U07.1 - COVID-19 - Assessment and plan all Dx Assessment and Plan for all problems:: Patient is stable. Continue Remdesivir, dexamethasone, supplemental oxygen as well as antibiotics. Wean oxygen as tolerated to keep sats greater than 90%. Encourage patient to ambulate.
[2021-10-31] VITALS: BP 123/64; PULSE 70; RESP 16; TEMP 36.8; O2SAT 95
[2021-10-31 04:00] VITALS: BP 127/78; PULSE 76; RESP 20; TEMP 36.8; O2SAT 95
[2021-10-31 04:57] VITALS: BMI 31.6
[2021-10-31 05:32] VITALS: PULSE 92; PULSE 93
[2021-10-31 06:45] LABS: Basophils % 0.4 % (0.1-2.0); Eosinophils % 0.3 % (0.1-12.0); Hematocrit 37.4 % (37.0-47.0); Hemoglobin 11.8 g/dL (12.2-16.2); Mean Corpuscular HGB Conc 31.6 g/dL (31.8-35.4); Mean Corpuscular Hemoglobin 28.1 pg (27.0-31.2); Mean Corpuscular Volume 89.1 fl (81-99); Monocytes # 0.3 K/mm3 (0.1-1.0); Monocytes % 3.7 % (1.7-9.3); Neutrophils # 5.6 K/mm3 (1.8-7.8); Neutrophils % 81.6 % (37.0-80.0); Platelet Count 767 K/mm3 (142-424); Red Blood Count 4.19 M/mm3 (4.20-5.40); Red Cell Distribution Width 14.1 % (11.5-17.5); White Blood Count 6.8 K/mm3 (4.8-10.8)
[2021-10-31 06:51] LABS: Chloride 101 mmol/L (98-107); Sodium 134 mmol/L (136-145)
[2021-10-31 06:53] LABS: Potassium 3.8 mmoL/L (3.5-5.1)
[2021-10-31 06:54] LABS: Alanine Aminotransferase 52 U/L (12-78); Alkaline Phosphatase 68 U/L (38-126); Anion Gap 4.8 mEq/L (5-15); Aspartate Amino Transferase 91 U/L (14-36); Bilirubin,Total 0.5 mg/dl (0.2-1.3); Blood Urea Nitrogen 12 mg/dl (7-17); Calcium 8.2 mg/dl (8.4-10.2); Carbon Dioxide 32 mmol/L (22.0-30.0); Creatinine Clearance Estimated 154 mL/min (50-200); Estimated Glomerular Filt Rate 128 ml/min (>60); GFR (African American) 154 ML/MIN (>60); Glucose 110 mg/dl (74-100)
[2021-10-31 06:56] LABS: Albumin Level 3.3 g/dl (3.5-5.0); Albumin/Globulin Ratio 1.1 (1.1-1.8); Globulin 2.9 g/dL (1.3-3.2); Total Protein,Serum 6.2 g/dl (6.3-8.2)
[2021-10-31 07:30] VITALS: BP 123/69; PULSE 97; RESP 20; TEMP 36.7; O2SAT 92
[2021-10-31 08:00] VITALS: PULSE 97; O2SAT 94
--- NOTE | 2021-10-31 08:23 | HMH.DCSUM ---
General - General Admission date:: 10/27/21 Discharge date: 10/31/21 HPI HPI: 56-year-old female presented to the emergency department yesterday with increasing shortness of breath believed to be related to COVID-19 infection. Patient had tested positive for COVID-19 on October 15. Patient completed a 10-day quarantine. Initial symptoms were primarily headache and nasal congestion with fevers as high as 102.7. On Wednesday the patient noticed increasing shortness of breath and loss of energy. This progressed to the point where she presented to the emergency department on the day of admission. Patient was hypoxic on presentation and her prior hypoxia was easily corrected with application of nasal cannula. Further work-up confirmed the presence of infiltrates. Patient was admitted for acute respiratory failure from pneumonia related to COVID-19 infection. She has been started on Remdesivir and dexamethasone as well as Rocephin and azithromycin. Patient has no personal history of lung disease. She is a non-smoker. Patient has had an increase in oxygen requirement overnight. Initially she was admitted on 2 L via nasal cannula and currently she is up to 5 L/min. CT scan performed on admission ruled out pulmonary emboli Hospital Course Hospital Course: Patient was admitted and placed on Remdesivir and dexamethasone for COVID-19 pneumonia with mild acute respiratory failure. She required supplemental oxygen with flow rate as high as 6 L/min via nasal cannula. Patient improved a little each day. She did get some benefit from duo nebs. After 4 days of treatment patient had improved with improvement in dyspnea. She remained afebrile. She continued to require supplemental oxygen with O2 sats as low as 87% at rest on room air the day of discharge. Patient was discharged to home. She will need home oxygen. She will follow-up with her primary care physician in 1 week. Patient was placed on Rocephin and azithromycin during hospitalization to cover possibility of secondary community-acquired pneumonia. She will not need any further antibiotics at discharge. Objective Vital signs: Temp Pulse Resp BP Pulse Ox 98.1 F 97 H 20 123/69 92 L 10/31/21 07:30 10/31/21 07:30 10/31/21 07:30 10/31/21 07:30 10/31/21 07:30 no acute distress - *Routine HEENT Exam Head: Present: normocephalic Eye: Present: EOMI, PERRL ENT: Present: mucous membranes moist - *Routine Neck Exam Present: supple - *Routine Respiratory Exam Present: rales (Bibasilar) - *Routine Cardiovascular Exam Present: RRR - *Routine Abdominal Exam Present: soft, normoactive bowel sounds. Absent: tenderness - *Routine Extremities Exam Absent: cyanosis, clubbing, edema - *Routine Skin Exam Present: warm. Absent: rash - Detailed Eye Exam Eyelids: Bilateral normal inspection Results Labs on day of discharge: Labs from last 24 hours 10/31/21 10/31/21 06:30 06:30 WBC 6.8 RBC 4.19 L Hgb 11.8 L Hct 37.4 MCV 89.1 MCH 28.1 MCHC 31.6 L RDW 14.1 Plt Count 767 H MPV 7.0 L Neut % (Auto) 81.6 H Lymph % (Auto) 14.0 [place] % (Auto) 3.7 Eos % (Auto) 0.3 Baso % (Auto) 0.4 Neut # (Auto) 5.6 Lymph # (Auto) 1.0 [place] # (Auto) 0.3 Eos # (Auto) 0.0 Baso # (Auto) 0.0 Sodium 134 L Potassium 3.8 Chloride 101 Carbon Dioxide 32 H Anion Gap 4.8 L BUN 12 Creatinine 0.50 L Estimated Creat Clear 154 Estimated GFR 128 Est GFR ( Amer) 154 Glucose 110 H Calcium 8.2 L Total Bilirubin 0.5 AST 91 H D ALT 52 D Alkaline Phosphatase 68 Total Protein 6.2 L Albumin 3.3 L Globulin 2.9 Albumin/Globulin Ratio 1.1 Preliminary micro results at discharge 10/27/21 14:50 Blood Culture - Preliminary Blood NO GROWTH AFTER 48 HOURS 10/27/21 14:50 Blood Culture - Preliminary Blood NO GROWTH AFTER 48 HOURS DS: Diagnosis - Discharge
--- NOTE | 2021-10-31 09:38 | SW/DCPLANNER ---
PATIENT IS DISCHARGING HOME TODAY WITH HOME 02 ..SPOKE WITH ABISAI FONTENOT AND INFORMATION WAS FAXED AND PORTABLE TANK WILL BE DELIVERED PRIOR TO PATIENT LEAVING TODAY.
--- NOTE | 2021-10-31 11:13 | PC.NURSE ---
Spoke with patient about expected time of arrival for her r/t pt having a discharge in for the day. Pt states her should be here around 1-2 this afternoon r/t road and weather conditions.
[2021-10-31 11:37] VITALS: BP 131/74; PULSE 74; RESP 20; TEMP 36.7; O2SAT 90
== END 2021-10-31 14:15 | disposition home or self-care (01) | DRG 177 ==
LOC: ER 15:07 → 2ND 19:04
PROVIDERS: Admitting Provider Family Medicine; Emergency Provider Emergency Medicine; PCP Family Medicine; Visit Provider Family Medicine
DX: U07.1 COVID-19 (principal); J12.82 Pneumonia due to coronavirus disease 2019; J96.01 Acute respiratory failure with hypoxia; E78.5 Hyperlipidemia, unspecified; I10 Essential (primary) hypertension; M19.90 Unspecified osteoarthritis, unspecified site; E66.9 Obesity, unspecified; Z68.31 Body mass index [BMI] 31.0-31.9, adult
CPT/HCPCS: 36415; 71045; 71275; 80053; 84145; 85007; 85025; 86140; 87040; 93005; 94640; 94760; 94761; 96365; 96367; 96375; 99284; C9803; J0456; J0696; Q9967; U0003; U0005

== ENCOUNTER → 2023-02-08 10:38 | Outpatient (CLI) | payer BC, SELFPAY | PROVIDERS: PCP Family Medicine; Visit Provider Internal Medicine | DX: I10 Essential (primary) hypertension (principal); I34.0 Nonrheumatic mitral (valve) insufficiency; E66.9 Obesity, unspecified; Z68.35 Body mass index [BMI] 35.0-35.9, adult | CPT/HCPCS: 93306 ==

== ENCOUNTER → 2023-06-25 06:21 | Outpatient (CLI) | payer BC, SELFPAY ==
--- NOTE | 2023-06-25 06:25 | NM_ITS ---
APPROVED REPORT Exam: Nuclear Stress Test Indication: chest pain..palpitations..fatigue..high bp..high cholesterol Patient Location: Outpatient Stress Tech: Elisabeth Anderson HI Tech:JOANN Ahmadi RT(R)(N) Ht: 5 ft 2 in Wt: 190 lbs Bra Size: 42dd HR: 75 bpm BP: 156/76 mmHg BSA: 1.87 m2 Rhythm: NSR TID: 1.04 BMI: 34.7 History: chest pain..palpitations..fatigue..high bp..high cholesterol Procedure: Patient received 0.4 mg of intravenous Lexiscan, resting heart rate 75 bpm, resting blood pressure 156/76 mmHg, with Lexiscan maximum heart rate achieved was 122 bpm which is 85 % of the maximum predicted heart rate and blood pressure was 161/87 mmHg. With Lexiscan, patient denied any complaint of chest pain. Cardiac Stress and Resting SPECT Images: Cardiac Stress and Resting SPECT images were obtained using technetium 99m Myoview 30.7 mCi stress and 10.91 mCi at rest. Resting and stress imaging in both supine and prone positions demonstrate no evidence of fixed or reversible perfusion defects. Gated imaging demonstrates normal global and regional LV systolic function. LVEF is calculated at 69%. Conclusion: No evidence of fixed or reversible perfusion defects. Gated imaging demonstrates normal global and regional LV systolic function. LVEF is calculated at 69%. Electronically signed by : Catherine Maciel MD 06/27/2023 22:23:43
--- NOTE | 2023-06-25 09:35 | CA_ITS ---
APPROVED REPORT Exam: Pharmacologic Technologist: Elisabeth Anderson, Ht: 5 ft 2 in Wt: 188 lbs BSA: 1.86 m2 HR: 71 bpm BP: 156/76 mmHg Rhythm: NSR,ST-T ABNORMALITY INFERIORLY, NS ST ABN LATERALLY Indications: CP Medical History Medical History: HTN Medications: Omeprazole,,,,, Flonase,,,,, Flonase,,,,, BisOPROLOL,,,,, FORteo,,,,, Allergies: LIA,ESTROGEN Cardiac Risk Factors: HTN Stress Test Details Test: LEXISCAN HR Resting HR: 75 bpm Max Heart Rate (APMHR): 163 bpm Max HR Achieved: 122 bpm Target HR (85% APMHR): 139 bpm % of APMHR: 75 Recovery HR: 94 bpm BP Resting BP: 156.0/76.0 mmHg Max BP: 161.0/87.0 mmHg Recovery BP: 148.0/70.0 mmHg ECG Resting ECG: NSR,ST-T ABN INFERIORLY,NS ST ABN LATERALLY Stress ECG: No significant ST changes Arrhythmia: None Clinical Exercise duration: 04:01 min Highest Stage Achieved: Exercise capacity: 1.0 METs Stress ECG Conclusion DURING INFUSION PATIENT HAD VERY MILD SOA,MILD GENERALIZED MALAISE. NO CP. NO ARRHYTHMIAS/ECTOPY. NO SIGNIFICANT ST CHANGES NOTED NON-DIAGNOSTIC LEXISCAN STRESS DUE TO BASELINE ABNORMALITIES. MYOVIEW IMAGES REPORTED SEPARATELY Test Summary REST . . . . . . . Sitting REST 05:57 . . 75 . 156/ 76 . . Stage 1 01:00 . . 117 . . . . Stage 2 01:00 . . 108 . 161/ 87 . . Stage 3 01:00 . . 101 . 149/ 79 . . Stage 4 01:00 . . 96 . 138/ 74 . . Stage 4 01:01 . . 96 . 138/ 74 . Stop exercise at 04:01 RECOVERY 01:00 . . 99 . . . . RECOVERY 02:00 . . 96 . 148/ 70 . . RECOVERY 03:00 . . 90 . 135/ 82 . . RECOVERY 03:47 . . 91 . 135/ 82 . . Electronically signed by : Catherine Maciel MD 06/27/2023 22:22:14
== END ==
PROVIDERS: PCP Family Medicine; Visit Provider Physician Assistant
DX: R00.2 Palpitations (principal); I34.0 Nonrheumatic mitral (valve) insufficiency; Z86.79 Personal history of other diseases of the circulatory system; E66.9 Obesity, unspecified; Z68.34 Body mass index [BMI] 34.0-34.9, adult
CPT/HCPCS: 78452; 93017; A9502; J2785

== ENCOUNTER 2023-06-25 09:33 | Emergency (ER) | payer BC, SELFPAY ==
[2023-06-25 09:45] VITALS: BP 151/76; PULSE 79; RESP 18; TEMP 36.7; O2SAT 98; BMI 33.3
--- NOTE | 2023-06-25 09:50 | XR_ITS ---
FINAL REPORT CLINICAL HISTORY: lateral sided pain FINDINGS: AP, oblique and lateral views of the right foot were obtained. There is no prior exam for comparison. There is no acute fracture or dislocation. The joint spaces are preserved. Soft tissues are normal. IMPRESSION: No acute osseous abnormality of the right foot. Reviewed, Interpreted and Dictated by Rosanna Llamas MD Transcribed by Katiuska Diehl Authenticated and [facility]
--- NOTE | 2023-06-25 09:50 | XR_ITS ---
FINAL REPORT CLINICAL HISTORY: pain FINDINGS: AP, oblique and lateral views of the left foot were obtained. There is no prior exam for comparison. There is no acute fracture or dislocation. The joint spaces are preserved. Soft tissues are normal. IMPRESSION: No acute osseous abnormality of the left foot. Reviewed, Interpreted and Dictated by Rosanna Llamas MD Transcribed by Katiuska Diehl Authenticated and [facility]
--- NOTE | 2023-06-25 09:55 | EXP.UTC ---
Discharge Plan Disposition Patient Disposition: Home, Self-Care Condition: Good Prescriptions Prescriptions: No Action Forteo 20 mcg/dose (600mcg/2.4mL) pen injector 20 mcg SQ MONTHLY omeprazole 20 MG capsule,delayed release(DR/EC) 20 mg PO DAILY bisoprolol fumarate 5 mg tablet 5 mg PO DAILY Referrals Follow up/Referrals: Sera Landon [Primary Care Provider] - See instructions Activity Restrictions/Add. Instructions Additional Instructions/Restrictions: *weight bearing as tolerated *RICE, Rest the extremity, Ice 15-20 minutes 3-4 times daily, Compress- wear the isamar wrap as discussed as much as possible to help reduce swelling and pain, Elevate the extremity when at rest *Elevate when resting? *Ibuprofen every 6-8 hours as needed for pain an inflammation. If need something more can take Tylenol in between doses of Ibuprofen to help Immediately follow up with your family doctor for new or worsening of symptoms, or no noticeable improvement over the next 3-5 days Follow up with your Family Doctor or Podiatry if pain continues Clinical Impressions Clinical Impression: Bilateral foot pain Instructions Patient Instructions: DI for Foot Pain Discharge ED Provider: Elisabeth Rodriguez [facility] General Stated complaint: pain in both feet, no accident Mode of Arrival: Ambulatory Source of Information: Patient Limitations: No Limitations Time Seen by Provider: 06/25/23 09:55 Description of Symptoms (Recalled from Triage Doc. by RN): PATIENT C/O BILATERAL FOOT PAIN X 1 WEEK HEENT Symptoms (Recalled from RN notes): No Resp Symptoms (Recalled from RN notes): No Skin Symptoms (Recalled from RN notes): No MS Symptoms (Recalled from RN notes): Yes Functional Status (Recalled from RN notes): WNL History of Present Illness Provider Complaint: Patient states that she has a history of stress fractures States that she has been having pain in both feet for over a week and she is worried she may have some stress fractures so she came in wanting to get xrays to see Denies known injury Related Data Home Medications Medication Instructions Recorded Confirmed omeprazole 20 mg capsule,delayed 20 mg PO DAILY GERD 07/05/21 06/25/23 release teriparatide 20 mcg/dose (600 20 mcg SQ MONTHLY BONES 05/04/23 06/25/23 mcg/2.4 mL) subcutaneous pen injector (Forteo) bisoprolol fumarate 5 mg tablet 5 mg PO DAILY Hypertension 06/25/23 06/25/23 Allergies Allergy/AdvReac Type Severity Reaction Status Date / Time calcium carbonate [From Tums] Allergy Verified 06/03/23 15:03 Estrogens Allergy Verified 06/03/23 15:03 Penicillins Allergy Verified 06/03/23 15:03 Worker's Comp Is this a Worker's Comp case?: No PFSH PFS Disclaimer: The information contained in this section may have been updated after the patient was seen, as this information can be updated by other users. Social History Smoking Status: Never smoker alcohol intake: never current occupational status: employed Travel in the last 8 weeks: None household members: spouse housing: house caffeine: Yes ROS Obtained: Yes All systems reviewed & no additional complaints except as documented and Yes Systems reviewed as appropriate & no additional complaints except as documented Constitutional Constitutional: Reports system reviewed and no additional complaints, except as documented and Reports as per HPI Cardiovascular Cardiovascular: Reports system reviewed and no additional complaints, except as documented and Reports as per HPI Respiratory Respiratory: Reports system reviewed and no additional complaints, except as documented and Reports as per HPI Gastrointestinal Gastrointestingal: Reports system reviewed and no additional complaints, except as documented and as per HPI Genitourinary Female Genitourinary: Reports system reviewed and no additional complaints, except
[2023-06-25 11:14] VITALS: BP 151/76; PULSE 79; RESP 18; TEMP 36.7; O2SAT 98
== END 2023-06-25 11:16 | disposition home or self-care (01) ==
PROVIDERS: Emergency Provider Nurse Practitioner; PCP Family Medicine
DX: M79.671 Pain in right foot (principal); M79.672 Pain in left foot
CPT/HCPCS: 73630; 99203; 99212; G0463

== ENCOUNTER 2023-08-04 08:34 | Emergency (ER) | payer BC, SELFPAY ==
--- NOTE | 2023-08-04 08:36 | EXP.UTC ---
Discharge Plan Disposition Patient Disposition: Home, Self-Care Condition: Good Prescriptions Prescriptions: New benzonatate [benzonatate] 100 mg capsule 100 mg PO TIDP PRN (Reason: Cough) Qty: 30 0RF methylprednisolone 4 mg Tablets,Dose Pack 4 mg PO DIRECTED Qty: 21 0RF cefdinir 300 mg capsule 300 mg PO BID Qty: 20 0RF No Action Forteo 20 mcg/dose (600mcg/2.4mL) pen injector 20 mcg SQ MONTHLY omeprazole 20 MG capsule,delayed release(DR/EC) 20 mg PO DAILY bisoprolol fumarate 5 mg tablet 5 mg PO DAILY Referrals Follow up/Referrals: Sera Landon [Primary Care Provider] - See instructions Activity Restrictions/Add. Instructions Additional Instructions/Restrictions: Drink plenty of fluids. Take tylenol or ibuprofen for pain or fever. Take the medications as directed. Follow up with your regular doctor. GO TO THE ER FOR ANY WORSENING SYMPTOMS Clinical Impressions Clinical Impression: Sinusitis Instructions Patient Instructions: Sinusitis, DI for Sinusitis Discharge ED Provider: Ronald Go [facility] General Stated complaint: fever, congestion, sinus pressure Time Seen by Provider: 08/04/23 08:36 History of Present Illness Provider Complaint: She states that for the past 4 days she has had sinus congestion, sore throat, and a productive cough. Related Data Home Medications Medication Instructions Recorded Confirmed omeprazole 20 mg capsule,delayed 20 mg PO DAILY GERD 07/05/21 08/04/23 release teriparatide 20 mcg/dose (600 20 mcg SQ MONTHLY BONES 05/04/23 08/04/23 mcg/2.4 mL) subcutaneous pen injector (Forteo) bisoprolol fumarate 5 mg tablet 5 mg PO DAILY Hypertension 06/25/23 08/04/23 Previous Rx's Medication Instructions Recorded benzonatate 100 mg capsule 100 mg PO TIDP PRN Cough #30 caps 08/04/23 cefdinir 300 mg capsule 300 mg PO BID #20 caps 08/04/23 methylprednisolone 4 mg tablets in 4 mg PO DIRECTED #21 tabs 08/04/23 a dose pack Allergies Allergy/AdvReac Type Severity Reaction Status Date / Time ampicillin Allergy Verified 08/04/23 08:50 calcium carbonate [From Tums] Allergy Verified 08/04/23 08:50 Estrogens Allergy Verified 08/04/23 08:50 Penicillins Allergy Verified 08/04/23 08:50 PFSH [facility] Disclaimer: The information contained in this section may have been updated after the patient was seen, as this information can be updated by other users. Social History Smoking Status: Never smoker alcohol intake: never current occupational status: employed Travel in the last 8 weeks: None household members: spouse housing: house caffeine: Yes ROS Obtained: Yes All systems reviewed & no additional complaints except as documented Constitutional Constitutional: Reports poor appetite Eyes Eyes: Reports system reviewed and no additional complaints, except as documented ENT Ears, Nose, Mouth, and Throat: Reports as per HPI Cardiovascular Cardiovascular: Reports system reviewed and no additional complaints, except as documented and Denies chest pain Respiratory Respiratory: Denies shortness of breath, Denies chest congestion, Reports cough, Denies stridor and Denies wheezing Gastrointestinal Gastrointestingal: Reports system reviewed and no additional complaints, except as documented; Denies abdominal pain, diarrhea or vomiting Musculoskeletal Musculoskeletal: Reports system reviewed and no additional complaints, except as documented and Denies arthralgias Integumentary/Breasts Skin/Breast: Reports system reviewed and no additional complaints, except as documented and Denies rash Neurologic Neurologic: Denies paresthesias Allergic/Immunologic Allergic/Immunologic: Denies wheezing Physical Exam General General appearance: alert and in no apparent distress Eye Eye exam: Present normal appearance, PERRL and EOMI ENT ENT exam: Present mucous me
[2023-08-04 08:40] VITALS: BP 145/83; PULSE 87; RESP 18; TEMP 37.9; O2SAT 97; BMI 34.7
[2023-08-04 09:41] VITALS: BP 145/83; PULSE 87; RESP 18; TEMP 37.4; O2SAT 98
== END 2023-08-04 09:41 | disposition home or self-care (01) ==
PROVIDERS: Emergency Provider Nurse Practitioner Family; PCP Family Medicine
DX: J01.90 Acute sinusitis, unspecified (principal)
CPT/HCPCS: 99212; 99214; G0463